=== PATIENT | male | born 1995 | race Caucasian/White ===

== ENCOUNTER 2017-05-05 16:28 | Emergency (ER) | payer BC, OTHER ==
[~2017-05-05] VITALS: Ht 182.9 cm; Wt 90.5 kg
[~2017-05-05 16:28] MED LIST: HYDR5TAB27 PO; PRLSR20 PO
[2017-05-05 16:32] VITALS: TEMP 36.6; Ht 182.9 cm; Wt 90.5 kg
[2017-05-05] MEDS ORDERED: KETOROLAC TROMETHAMINE 15 MG/ML VIAL IV STA (16:56)
[2017-05-05] MEDS ORDERED: KETOROLAC TROMETHAMINE 30 MG/ML VIAL ONE (17:00)
[2017-05-05 17:10] LABS: BASO % 0.4 %; BASO ABS # 0.03 K/uL (0-0.2); EOS % 2.7 %; EOS ABS # 0.21 K/uL (0-0.5); HEMATOCRIT 42.3 % (42-52); HEMOGLOBIN 15.4 g/dL (14.0-18.0); IG# 0.05 K/uL (0.00-0.02); LYMPH % 29.7 %; LYMPH ABS # 2.29 K/uL (1.2-3.4); MEAN CORPUSCULAR HEMOGLOBIN 29.1 pg (25-34); MEAN CORPUSCULAR HGB CONC 36.4 g/dl (32-36); MEAN PLATELET VOLUME 8.1 fL (7.4-10.4); MONO % 11.5 %; MONO ABS # 0.89 K/uL (0.11-0.59); NEUT % 55.1 %; NEUT ABS # 4.24 K/uL (1.4-6.5); PLATELET COUNT 276 K/uL (130-400); RED CELL DISTRIBUTION WIDTH CV 13.5 % (11.5-14.5); RED CELL DISTRIBUTION WIDTH SD 38.9 fL (36.4-46.3); WHITE BLOOD COUNT 7.71 K/uL (4.8-10.8)
[2017-05-05 17:28] LABS: ALBUMIN 4.1 gm/dl (3.4-5.0); ALT/SGPT 79 U/L (12-78); BLOOD UREA NITROGEN 10 mg/dl (7-18); CALCIUM 8.7 mg/dl (8.5-10.1); CARBON DIOXIDE 27 mmol/L (21-32); CREATININE 1.05 mg/dl (0.60-1.40); GLUCOSE 106 mg/dl (70-99); POTASSIUM 3.6 mmol/L (3.5-5.1); SODIUM 137 mmol/L (136-145)
[2017-05-05 17:32] LABS: ALKALINE PHOSPHATASE 91 U/L (45-117); AST/SGOT 28 U/L (15-37); TOTAL PROTEIN 7.6 gm/dl (6.4-8.2)
[2017-05-05] MEDS ORDERED: LISI-461 PO (17:38)
[2017-05-05] MEDS ORDERED: OMEP40CA41 PO (17:38)
[2017-05-05] MEDS ORDERED: MECL1TAB40 PO (17:38)
--- NOTE | 2017-05-05 17:42 | DIAGNOSTIC IMAGING REPORT ---
CHEST ONE VIEW PORTABLE CLINICAL HISTORY: Chest pain. Cough. Fatigue. COMPARISON STUDY: No previous studies for comparison. FINDINGS: Lung volumes are normal. No pneumothorax or pleural effusion is noted. Lungs are clear. Cardiac size is normal. Mediastinal contours are normal. There is no evidence for pulmonary edema. IMPRESSION: No acute cardiopulmonary findings. Electronically signed by: Ham Campoverde M.D. 05/05/2017 5:41 PM Dictated Date/Time: 05/05/2017 5:41 PM
--- NOTE | 2017-05-05 18:00 | EMERGENCY ROOM VISIT NOTE ---
History First contact with patient: 16:35 Chief Complaint: CHEST PAIN Stated Complaint: CHEST PAIN, PERSISTANT COUGH, FATIGUE Nursing Triage Summary: pt c/o several days, dry cough and " chest pain" pt states pain and discomfort doesn't come with activity but hours to a day afterward. ie he goes outside and plays with his son and then the next day has the chest discomfort. pt has also been to [facility] recently also has had a negative stress in jan. History of Present Illness The patient is a 21 year old male who presents to the Emergency Room with complaints of persistent cough and chest pain. The patient states that he has had a persistent cough as well as pain in both sides of his chest, shortness of breath and lightheadedness which has been ongoing for several months. He was seen at [place] emergency department 3 weeks ago for the same symptoms and was told he possibly had pneumonia. He states he was prescribed a Z-Samuel. He has followed up with his primary care provider twice since then, including this morning prior to his visit here. He states they ordered a CT scan, blood work and an echocardiogram. He did have some blood work done today at [place]. He has an appointment with cardiology in a few weeks. He states that the pain as a throbbing, sharp pain which moves from the left side of his chest to the right side of the chest. He states the pain is currently in the left side of his chest. He rates his discomfort a 7/10. The patient states that he has seen several doctors and has had several workups for this. He reports he was recently placed on medication for hypertension because her blood pressure in the office was high. He is on medication for acid reflux and was told that this could not be caused by his acid reflux because his blood pressure was too high. The patient is not a smoker. He denies any recent travel. He denies family history of blood clots. Review of Systems A complete 10 point review of systems was reviewed with the patient with pertinent positives and negatives as per history of present illness. All else were negative. Past Medical/Surgical History Medical Problems: (1) Dyslexia (2) Family history of gallbladder disease (3) Family history of kidney disease/stones (4) Oral surgery Social History Smoking Status: Never Smoker Alcohol Use: none Drug Use: none Marital Status: single Housing Status: lives with family Occupation Status: unemployed Current/Historical Medications Scheduled Lisinopril (Zestril), 10 MG PO DAILY Omeprazole (Prilosec), 40 MG PO DAILY Scheduled PRN Meclizine Hcl (Meclizine Hcl), 12.5 MG PO TID PRN for Dizziness or Vertigo Physical Exam Vital Signs Date Time Temp Pulse Resp B/P (MAP) Pulse Ox O2 Delivery O2 Flow Rate FiO2 05/05/17 18:14 96 19 121/71 98 Room Air 05/05/17 17:34 93 17 137/76 98 Room Air 05/05/17 16:42 102 05/05/17 16:32 36.6 106 20 146/81 97 Room Air Physical Exam VITALS: Vitals are noted on the nurse's note and reviewed by myself. Vital signs stable. GENERAL: This is a 21-year-old male, in no acute distress, nondiaphoretic, well- developed well-nourished. SKIN: The skin was without rashes. EARS: External auditory canals clear, tympanic membranes pearly carmona without erythema or effusion bilaterally. EYES: Pupils equal round and reactive to light and accommodation. MOUTH: Mucous membranes moist. Tonsils are not enlarged. Pharynx without erythema or exudate. NECK: Supple without nuchal rigidity. No lymphadenopathy. HEART: Regular rate and rhythm without murmurs gallops or rubs. LUNGS: Clear to auscultation bilaterally without wheezes, rales or rhonchi. No retractions or accessory muscle use. ABDOMEN: Soft, nontender to palpation. MUSCULOSKELETAL: No reproducible pain to palpation of the chest wall. NEURO: Patient was alert and oriented to person place and time. Medical Decision & Procedures ER Provider Diagnostic Interpretation: CHEST ONE VIEW PORTABLE CLINICAL HISTORY: Chest pain. Cough. Fatigue. COMPARISON STUDY: No previous studies for comparison. FINDINGS: Lung volumes are normal. No pneumothorax or pleural effusion is noted. Lungs are clear. Cardiac size is normal. Mediastinal contours are normal. There is no evidence for pulmonary edema. IMPRESSION: No acute cardiopulmonary findings. Laboratory Results 05/05/17 16:52 Red Blood Count 5.29, Mean Corpuscular Volume 80.0, Mean Corpuscular Hemoglobin 29.1, Mean Corpuscular Hemoglobin Concent 36.4, Mean Platelet Volume 8.1, Neutrophils (%) (Auto) 55.1, Lymphocytes (%) (Auto) 29.7, Monocytes (%) (Auto) 11.5, Eosinophils (%) (Auto) 2.7, Basophils (%) (Auto) 0.4, Neutrophils # (Auto ) 4.24, Lymphocytes # (Auto) 2.29, Monocytes # (Auto) 0.89, Eosinophils # (Auto ) 0.21, Basophils # (Auto) 0.03 05/05/17 16:52 Test 05/05/17 16:52 White Blood Count 7.71 K/uL (4.8-10.8) Red Blood Count 5.29 M/uL (4.7-6.1) Hemoglobin 15.4 g/dL (14.0-18.0) Hematocrit 42.3 % (42-52) Mean Corpuscular Volume 80.0 fL (80-100) Mean Corpuscular Hemoglobin 29.1 pg (25-34) Mean Corpuscular Hemoglobin Concent 36.4 g/dl (32-36) Platelet Count 276 K/uL (130-400) Mean Platelet Volume 8.1 fL (7.4-10.4) Neutrophils (%) (Auto) 55.1 % Lymphocytes (%) (Auto) 29.7 % Monocytes (%) (Auto) 11.5 % Eosinophils (%) (Auto) 2.7 % Basophils (%) (Auto) 0.4 % Neutrophils # (Auto) 4.24 K/uL (1.4-6.5) Lymphocytes # (Auto) 2.29 K/uL (1.2-3.4) Monocytes # (Auto) 0.89 K/uL (0.11-0.59) Eosinophils # (Auto) 0.21 K/uL (0-0.5) Basophils # (Auto) 0.03 K/uL (0-0.2) RDW Standard Deviation 38.9 fL (36.4-46.3) RDW Coefficient of Variation 13.5 % (11.5-14.5) Immature Granulocyte % (Auto) 0.6 % Immature Granulocyte # (Auto) 0.05 K/uL (0.00-0.02) Anion Gap 6.0 mmol/L (3-11) Est Creatinine Clear Calc Drug Dose 121.1 ml/min Estimated GFR () 116.2 Estimated GFR (Non- 100.3 BUN/Creatinine Ratio 9.5 (10-20) Calcium Level 8.7 mg/dl (8.5-10.1) Total Bilirubin 0.3 mg/dl (0.2-1) Aspartate Amino Transf (AST/SGOT) 28 U/L (15-37) Alanine Aminotransferase (ALT/SGPT) 79 U/L (12-78) Alkaline Phosphatase 91 U/L (45-117) Troponin I < 0.015 ng/ml (0-0.045) Total Protein 7.6 gm/dl (6.4-8.2) Albumin 4.1 gm/dl (3.4-5.0) Globulin 3.5 gm/dl (2.5-4.0) Albumin/Globulin Ratio 1.2 (0.9-2) Medications Administered Medications (Trade) Dose Ordered Sig/Jaron Route Start Time Stop Time Status Last Admin Dose Admin Ketorolac Tromethamine (Toradol Inj) 15 mg NOW STAT IV 05/05/17 16:56 05/05/17 16:58 DC 05/05/17 17:04 15 MG ECG Per My Interpretation Indication: chest pain Rate (beats per minute): 97 Rhythm: normal sinus Findings: no acute ischemic change, no ectopy Comparison ECG Date: no prior available Medical Decision Differential diagnosis includes acute coronary syndrome, pulmonary embolism, pneumothorax, pericarditis, myocarditis, endocarditis, anxiety, musculoskeletal pain, GERD, costochondritis, pneumonia, among others. The patient is a 21-year-old male who presents today complaining of ongoing chest pain and cough. Outpatient records were obtained by case management. The patient was seen at the [place] emergency department 04/08/17. He had negative workup including laboratory testing, EKG, troponin and d-dimer. These records also show that the patient had a stress test performed 01/20/17 which showed no evidence for coronary artery disease. Additionally, the patient has been seen twice by his primary care provider. He was placed on azithromycin to rule out sinusitis/postnasal drip. He was seen this morning and had an outpatient d-dimer and troponin ordered. These were performed under the [facility] system and were both found to be negative. Patient is scheduled for a chest CT tomorrow and has cardiology follow-up scheduled as well. Labs revealed no leukocytosis, anemia, or concerning electrolyte abnormality. Troponin was not elevated. D-dimer from earlier was negative. EKG was interpreted by myself and shows a normal sinus rhythm. Patient has been evaluated multiple times for similar symptoms. He has outpatient cardiology workup scheduled. Based on the patient's presentation and work up, I feel the patient is stable for outpatient treatment. The patient was educated to return to the emergency department for any worsening of their current condition or new/concerning symptoms. He will follow up with cardiology as scheduled. The patient's case was reviewed with Dr. King, ED attending physician, who agreed with my assessment and treatment plan. Medication Reconcilliation Current Medication List: was personally reviewed by me Blood Pressure Screening Patient's blood pressure: Normal blood pressure Impression Primary Impression: Left sided chest pain Departure Information Dispostion Home / Self-Care Condition GOOD Referrals Godfrey Amaya M.D. (PCP) Patient Instructions My [facility] Additional Instructions You have been treated in the Emergency Department for your Chest Pain. Laboratory results and Imaging Studies have ruled out any acute cardiac or pulmonary cause of your chest pain. For pain control, you can use the following [id number] medicines (if >12 yo): - Regular strength (325mg/tab) Tylenol (acetaminophen) 2 tabs every 4-6 hours as needed. Do not exceed 12 tablets in a 24 hour period. Avoid taking more than 4 grams (4000 mg) of Tylenol per day. This includes any other sources of acetaminophen you may take on a regular basis. - Regular strength (200 mg/tab) Advil (ibuprofen) 2-3 tabs every 4-6 hours as needed. Do not exceed a dose of 3200 mg per day. You should schedule a follow-up appointment with your Primary Care Provider in 2 -3 days for further evaluation from today's Emergency Department visit. Return to the Emergency Department if your current symptoms worsen despite treatment course outlined above, or if you develop any of the following symptoms : worsening chest pain, associated jaw/arm pain, nausea, dizziness, shortness of breath, bloody cough, or fainting.
[2017-05-05 18:14] VITALS: BP 121/71; PULSE 96; O2SAT 98
== END 2017-05-05 18:36 | disposition home or self-care (01) ==
LOC: C.EDB 16:30 → C.EDA 18:36
DX: R07.9 Chest pain, unspecified (principal); I10 Essential (primary) hypertension; K21.9 Gastro-esophageal reflux disease without esophagitis; R48.0 Dyslexia and alexia; Z84.1 Family history of disorders of kidney and ureter; Z79.899 Other long term (current) drug therapy